=== PATIENT | female | born 1965 | race Caucasian/White ===

== ENCOUNTER 2023-03-03 18:10 | Emergency (ER) | payer MEDICARE, MEDICAID ==
[~2023-03-03] VITALS: Ht 160 cm; Wt 97.5 kg
[2023-03-03 18:21] VITALS: BP 172/88
[2023-03-03] MEDS ORDERED: CLON1 PO (18:26)
== END 2023-03-03 18:28 | disposition home or self-care (01) ==
LOC: ER 18:10
DX: F41.9 Anxiety disorder, unspecified (principal); F43.0 Acute stress reaction; Z79.899 Other long term (current) drug therapy
CPT/HCPCS: 99282; A9270

== ENCOUNTER 2023-03-06 18:52 | Emergency (ER) | payer MEDICARE, OTHER ==
[~2023-03-06] VITALS: Ht 167.6 cm; Wt 104.3 kg
[~2023-03-06 18:52] MED LIST: CLON1 PO
[2023-03-06 19:01] VITALS: BP 146/75
[2023-03-06] MEDS ORDERED: Klonopin1 MG PO (19:05)
== END 2023-03-06 19:05 | disposition home or self-care (01) ==
LOC: ER 18:52
DX: F41.0 Panic disorder [episodic paroxysmal anxiety] (principal); Z79.899 Other long term (current) drug therapy; Z76.0 Encounter for issue of repeat prescription
CPT/HCPCS: 99281